=== PATIENT | male | born 1960 | race Caucasian/White ===

== ENCOUNTER 2020-03-01 06:35 | Day surgery (SDC) | payer BC ==
[~2020-03-01] VITALS: Ht 177.8 cm; Wt 130.9 kg
[~2020-03-01 06:35] MED LIST: CLOBETASOL PROP59 M1 TOP; GLUCOPHAGE500 MG PO; LIPITOR20 MG PO; LISINOPRIL5 MG PO; MOMETASONE FURO15 GM TOP; STELARA90 MG/1 ML SUB-Q
--- NOTE | 2020-03-01 08:36 | NUR ---
03/01/20 0836 Sheets,Clarisse 0818 PT ARRIVED TO PACU ON 3L ON NC, BP INCREASED AND MD AWARE. PT ENCOURAGED TO PASS GAS. 0832 O2 REMOVED. MD AWARE OF BP AND REQUEST PT TO FOLLOW UP WITH PCP. NO NEW ORDERS AT THIS TIME.
--- NOTE | 2020-03-01 15:17 | OR ---
[facility] [address] [place], [place] [address] Signed DATE OF OPERATION: 03/01/2020 SURGEON: Natalia Spring MD PREOPERATIVE DIAGNOSES: 1. History of pseudo polyp of cecum (hyperplasia). 2. Sigmoid diverticulosis. POSTOPERATIVE DIAGNOSIS: Definite polyp of cecum (excised). PROCEDURE: Total colonoscopy to cecum with cold snare polypectomy x1. INDICATIONS: This 59-year-old white man is a patient of Dr. Albino Snowden. He is here for surveillance colonoscopy. In July 2016, he was found to have two lesions suggestive of polyp. Final pathology showed the cecal lesion to be without clinical pathologic finding. A sigmoid biopsy showed possible hyperplastic polyp. He is symptom free currently. He is admitted at this time to undergo surveillance colonoscopy, understand the risks of bleeding, infection, and perforation. FINDINGS: The prep was adequate. Complete colonoscopy was undertaken to the cecum without question. He did have a sessile polyp of the cecum without question. This was excised with cold morcellation technique. There were diverticular changes of sigmoid and left colon, but no other findings of concern. DESCRIPTION OF PROCEDURE: The patient was brought to the endoscopy suite and placed in lateral decubitus position. Given intravenous sedation to the point of slurred speech and nystagmus with full cardiopulmonary monitoring. Digital rectal examination was normal. An Olympus video colonoscope was passed into the rectum and manipulated throughout the colon, noting diverticular change of the sigmoid. The prep was adequate. Irrigation was required from [id number]. The scope was ultimately advanced to the cecum. Close manipulation of the cecum showed a sessile polyp. Photographs were taken. A cold snare polypectomy was performed of the polyp. Specimen passed for permanent pathology. Scope Electronically Signed By: NATALIA SPRING MD 03/01/20 1517 PATIENT NAME: JENI MORENO OPERATIVE REPORT DATE OF : 62 REPORT #: [id number] PHYSICIAN: NATALIA SPRING MD PCP: ALBINO SNOWDEN MD REPORT IS CONFIDENTIAL AND NOT TO BE RELEASED WITHOUT AUTHORIZATION [facility] [address] [place], [place] [address] Signed was then withdrawn, examination throughout showed no sign of abnormality other than diverticular change of the sigmoid. Retroflexed view was normal. The scope was removed. The patient was taken to the recovery room in good condition. CONCLUDING DIAGNOSES: 1. Polyp of cecum. 2. Diverticulosis. PLAN: Recommend repeat colonoscopy in 3 years or sooner if clinically indicated. Recommend high-fiber diet. He will return to the ongoing care of Dr. Snowden as well. MD ROZ Murillo/TYLERL /[id number] Copies: ~ Electronically Signed By: NATALIA SPRING MD 03/01/20 1517 PATIENT NAME: JENI MORENO OPERATIVE REPORT DATE OF : 62 REPORT #: [id number] PHYSICIAN: NATALIA SPRING MD PCP: ALBINO SNOWDEN MD REPORT IS CONFIDENTIAL AND NOT TO BE RELEASED WITHOUT AUTHORIZATION
--- NOTE | 2020-03-02 11:31 | PATH ---
[facility] [address] [place], [place] [address] Signed SPECIMEN(S): A CECUM POLYP SPECIMEN SOURCE: A. CECUM POLYP CLINICAL HISTORY: Diverticulosis, history adenomatous cecal changes. Post-op: Cecal polyp. Colonoscopy. MICROSCOPIC DESCRIPTION: Histologic sections of all submitted blocks are examined by light microscopy. These findings, together with the gross examination, support the pathologic diagnosis. FINAL PATHOLOGIC DIAGNOSIS: Colon, cecum, polyp, polypectomy: - Fragments of tubular adenoma. - Negative for high-grade dysplasia or malignancy. NAL:cml:C2NR GROSS DESCRIPTION: The specimen, labeled "RC, cecum polyp," is received in formalin and consists of two yee soft tissue fragments that measure 0.1-0.5 cm in greatest dimension. The specimen is entirely submitted in cassette (A1). JS (under the direct supervision of a pathologist) The Gross Description was prepared using a voice recognition system. The report was reviewed for accuracy; however, sound-alike word errors, addition and/or deletions may occur. If there is any question about this report, please contact Client Services. PERFORMING LABORATORY: The technical component was performed by [facility], [address] [place] [id number] (Home Hospice Rn: Marie Pederson MD; CLIA# [id number]). [facility], [address] [address] (CLIA# [id number]). Diagnostician: Em Morelos MD Pathologist Electronically Signed 03/02/2020 PATIENT NAME: JENI MORENO PATHOLOGY DATE OF : 62 REPORT #: [id number] PHYSICIAN: MARLENE PATHOLOGY PCP: DINORAH GAITAN MD REPORT IS CONFIDENTIAL AND NOT TO BE RELEASED WITHOUT AUTHORIZATION [address] [place], [place] [address] Signed Copies: ~ PATIENT NAME: JENI MORENO PATHOLOGY DATE OF : 62 REPORT #: [id number] PHYSICIAN: MARLENE PATHOLOGY PCP: DINORAH GAITAN MD REPORT IS CONFIDENTIAL AND NOT TO BE RELEASED WITHOUT AUTHORIZATION
== END 2020-03-01 09:08 | disposition home or self-care (01) ==
LOC: DS 06:35 → OPS 06:35 → DS 06:45 → OPS 06:45
PROVIDERS: ATTEND Surgery
PROC: 0DBH8ZX Excision of Cecum, Via Natural or Artificial Opening Endoscopic, Diagnostic (ICD-10-PCS; principal; 2020-03-01 06:45)
DX: Z12.11 Encounter for screening for malignant neoplasm of colon (principal); D12.0 Benign neoplasm of cecum; K57.30 Diverticulosis of large intestine without perforation or abscess without bleeding; I10 Essential (primary) hypertension; R73.01 Impaired fasting glucose; E78.00 Pure hypercholesterolemia, unspecified; E66.01 Morbid (severe) obesity due to excess calories; L40.9 Psoriasis, unspecified; G47.30 Sleep apnea, unspecified; Z79.84 Long term (current) use of oral hypoglycemic drugs; Z79.899 Other long term (current) drug therapy; Z86.010 Personal history of colon polyps
CPT/HCPCS: 99153; G0500; J2250; J3010; J7121

== ENCOUNTER 2020-06-21 13:19 | Emergency (ER) | payer BC ==
[~2020-06-21] VITALS: Ht 177.8 cm; Wt 122.5 kg
== END 2020-06-21 16:30 | disposition home or self-care (01) ==
LOC: ED 13:19
DX: K64.4 Residual hemorrhoidal skin tags (principal); I10 Essential (primary) hypertension; E11.9 Type 2 diabetes mellitus without complications; E78.00 Pure hypercholesterolemia, unspecified; Z79.899 Other long term (current) drug therapy; Z79.84 Long term (current) use of oral hypoglycemic drugs
CPT/HCPCS: 99282

== ENCOUNTER 2024-04-03 06:00 | Day surgery (SDC) | payer BC ==
[2024-04-01 09:54] VITALS: BP 119/71
[2024-04-01 10:40] VITALS: BP 119/71
[~2024-04-03] VITALS: Ht 177.8 cm; Wt 121.0 kg
[~2024-04-03 06:00] MED LIST changes: +CICLODAN6.6 ML TOP; +INDAPAMIDE2.5 MG PO; +LACTATED RINGER'S 1,000 ML IV SCH; -LISINOPRIL5 MG PO; +MOUNJARO10 MG/0.5 SUB-Q; +SILDENAFIL20 MG PO; +TALTZ AUTO80 MG/1 ML SQ; +TOPIRAMATE ER25 M1 PO; +TOPIRAMATE50 MG PO; +TRULICITY0.75 MG/0. SQ; +ZESTRIL40 MG PO
[2024-04-03 06:22] VITALS: BP 110/66
[2024-04-03] MEDS ORDERED: CEFAZOLIN SODIUM 3 GM/30 ML SYR IV SCH (07:00)
[2024-04-03] MEDS ORDERED: LIDOCAINE HCL 1% 5 ML SDV INJ ONE (07:00)
[2024-04-03] MEDS ORDERED: IBLOOD GLUCOSE TEST STRIP 1 EA TEST VI PRN ×2 (07:00→08:30)
[2024-04-03] MEDS ORDERED: HEParin SOD (PORCINE) 5,000 UNIT/0.5 ML SYR SUB-Q SCH (07:00)
[2024-04-03 07:02] VITALS: BP 116/77
[2024-04-03] MEDS ORDERED: fentaNYL citrate 100 MCG/2 ML VIAL ONE (07:25)
[2024-04-03] MEDS ORDERED: propofoL 200 MG/20 ML VIAL ONE (07:26)
[2024-04-03] MEDS ORDERED: KETAMINE in NS 50 MG/5 ML SYR ONE (07:26)
[2024-04-03] MEDS ORDERED: LIDOCAINE HCL 2% 5 ML SDV ONE ×2 (07:26→07:29)
[2024-04-03] MEDS ORDERED: KETOROLAC TROMETHAMINE 30 MG/ML VIAL ONE (07:26)
[2024-04-03] MEDS ORDERED: SODIUM CHLORIDE 0.9% 40 ML IV ONE (07:26)
[2024-04-03] MEDS ORDERED: MAGNESIUM SULFATE 1 GM/2 ML VIAL ONE (07:26)
[2024-04-03] MEDS ORDERED: ACETAMINOPHEN 1,000 MG/100 ML VIAL ONE (07:26)
[2024-04-03] MEDS ORDERED: DEXAMETHASONE SOD PHOS 4 MG/ML VIAL ONE (07:26)
[2024-04-03] MEDS ORDERED: dexmedeTOMIDine HCl 200 MCG/2 ML VIAL ONE (07:26)
[2024-04-03] MEDS ORDERED: ondansetron HCL 4 MG/2 ML VIAL ONE (07:26)
[2024-04-03] MEDS ORDERED: ePHEDrine sulfate 50 MG/ML AMP ONE (08:16)
[2024-04-03] MEDS ORDERED: GLYCOPYRROLATE 1 MG/5 ML MDV ONE (08:22)
[2024-04-03] MEDS ORDERED: ondansetron HCL 4 MG/2 ML VIAL IV PRN (08:30)
[2024-04-03] MEDS ORDERED: fentaNYL citrate 50 MCG/ML SDV IV PRN (08:30)
[2024-04-03] MEDS ORDERED: NALOXONE HCL 0.4 MG SYR IV PRN ×2 (08:30→09:00)
[2024-04-03] MEDS ORDERED: OXYCODON-ACETA1 EAC2 PO (08:50)
[2024-04-03] MEDS ORDERED: ACETAMINOPHEN500 MG PO (08:50)
[2024-04-03] MEDS ORDERED: IBUPROFEN600 MG PO (08:50)
[2024-04-03] MEDS ORDERED: LACTATED RINGER'S 1,000 ML IV SCH (09:00)
[2024-04-03] MEDS ORDERED: IBUPROFEN 600 MG TAB PO PRN (09:00)
[2024-04-03] MEDS ORDERED: OXYCODONE/APAP 7.5/325 TAB PO PRN (09:00)
[2024-04-03] MEDS ORDERED: ACETAMINOPHEN 500 MG TAB PO PRN (09:00)
--- NOTE | 2024-04-03 09:04 | NUR ---
04/03/24 0904 Janel Ramos 0834- PT ARRIVES TO THE PACU WITH A NATURAL AIRWAY AND ON 6L OF O2 VIA MASK. BREATHING IS EVEN AND UNLABORED. PT SHOWS SOME FACIAL GRIMACING. WHEN ASKED ABOUT PAIN AND NAUSEA THE PT SHAKES HIS HEAD NO. ALL MONITORS PUT IN PLACE. LR INFUSING IN THE RIGHT HAND. PT IN SEMI FOWLERS POSITION. ABDOMINAL SURGICAL SITE IS CLEAN, DRY AND INTACT ON INSPECTION. 0842- O2 MASK REMOVED. PT SATS ARE BETWEEN LOW 90S TO HIGH 80S. PT ENCOURAGED TO COUGH AND DEEP BREATHE OFF AND ON. PT SATS WILL INCREASE TO MID 90S. PT EASILY FALLS BACK TO SLEEP AND O2 SATS DECREASE TO THE HIGH 80S. 0848- PT GIVEN AND PILLOW TO HELP WITH SPLINTING. PT CONTINUES TO DENY PAIN AND NAUSEA. 0850- PLAN OF CARE DISCUSSED AND ABDOMINAL BINDER PUT IN PLACE PER MD. 0855- MD AT BEDSIDE TALKING WITH PT. NO QUESTIONS OR CONCERNS. 0901- WHILE PT IS RESTING PT SATS CONTINUE TO DECREASE TO 89%. PT PUT ON 1L OF O2 VIA NC. O2 SATS INCREASE TO 94%. PT RESTING WITH EYES CLOSED.
[2024-04-03 09:18] VITALS: BP 129/68
--- NOTE | 2024-04-03 09:21 | NUR ---
0915 PT ARRIVED TO DAY SURGERY VIA STREACHER. PT DROWSEY BUT ORIENTED. PT REPORTS NO PAIN OR NAUSEA AT THIS TIME. PT SITTING IN SEMI FOWLERS, BREATHING EQUAL AND UNLABORED. PT ON 1L OF O2 VIA NC FOR COMFORT DUE TO PT SLEEP APNEA. PT BED LOW AND LOCKED. CALL LIGHT WITHIN REACH. WATER AND SNACKS AT BEDSIDE.
[2024-04-03 10:08] VITALS: BP 135/72
--- NOTE | 2024-04-03 10:11 | NUR ---
0907-INTO PTS ROOM FOR DISCHAARGE TEACHING AND ROUTINE REASSESSMENT. PT SATS 94-95% OON 1L/NC. TITRATED TO RA. SATS REMAIN 93% OR GREATER ON RA. DISCHARGE EDUCATION REVIEWED WITH PT. PT PROVIDED F/U APPT FOR 05/08/[address] SPRING. DISCUSSED WOUND CARE ORDERS, USE OF ABD BINDER, LIFTING RESTRICTIONS, AND POST-OP PAIN MEDICATIONS. ALL QUESTIONS ANSWERED. 1008-VS TAKEN. IV SITE ASSESSED. PT ENCOURAGED TO TAKE SIPS OF WATER AND ATTEMPT TO EAT PUDDING. PT COMPLIES WITH REQUEST. PT DENIES BOTH NAUSEA AND PAIN WHEN ASKED. SURGICAL DRSG VISUALIZED AND APPEARS CDI. PT WITH ABD BINDER IN PLACE. PT DENIES URGE TO VOID WHEN ASKED. BED IN LOW POSITION, WHEELS LOCKED, BILAT RAILS IN PLACE, AND CALL LIGHT WITHIN PT REACH. PT APPEARS AAOX3, ABLE TO MAKE HIS NEEDS KNOWN, AND ANSWERS QUESTIONS APPROPRIATELY.
--- NOTE | 2024-04-03 11:06 | NUR ---
LE 1105: PT IS ASSISTED UP OOB WITH STANDBY ASSIST. HE AMBULATES HIMSELF TO THE BATHROOM. HE IS ABLE TO VOID 275MLS. LE 1106: HE INDICATES THAT HE WOULD LIKE TO GO HOME AT THIS TIME. HE IS EDUCATED ON HOW TO BEST DRESS HIMSELF AND TO OPEN HIS CURTAIN WHEN READY. IS CALLED TO COME PICK HIM UP. SHE WILL BE HERE IN ABOUT 40 MINUTES - SHE IS COMING FROM [place].
[2024-04-03 11:19] VITALS: BP 129/67
--- NOTE | 2024-04-03 11:25 | NUR ---
1115-INTO PTS ROOM FOR ROUTINE REASSESSMENT. VS TAKEN. PT REPORTS PAIN AT 3/10 IN SURIGCAL SITE. PT REPORTS THIS TO BE TOLERABLE AND DECLINES INTERVENTION AT THIS TIME. PT DENIES NAUSEA WHEN ASKED. PT COMPLIANT WITH USE OF ABD BINDER. SURGICAL SITE OBSERVED AND SMALL AMT OF SHADOWING NOTED ON BOTTOM OF DRSG. DRSG REMAINS INTACT. PT IS DRESSED AND HAS EATEN AND TAKEN PO FLUIDS WITHOUT ISSUES. PT VOIDED AND HAS MET CRITERIA FOR DC. HAS BEEN CALLED AND WILL ARIVE AT FRONT OF HOSPITAL AT APPROX 1200. 1125-IV REMOVED. TIP OBSERVED TO BE INTACT. PRESSURE DRSG APPLIED WITH GAUZE AND COBAN. PT DECLINES TO PUT SHOES ON AT THIS TIME. ALL QUESTIONS ANSWERED. BED IN LOW POSITION, WHEELS LOCKED, CALL LIGHT WITHIN PT REACH.
--- NOTE | 2024-04-03 12:00 | NUR ---
PT DISCHARGED HOME VIA WC TO PASSENGER SIDE OF WIFES VEHICLE. ALL PERSONAL BELONGINGS TAKEN WITH PT.
[2024-04-03] MEDS ORDERED: SEVOFLURANE 250 ML BTL INH ONE (15:10)
--- NOTE | 2024-04-03 19:35 | EKG ---
[facility] [address] [facility] [place], [place] [address] Signed Normal sinus rhythm T wave abnormality, consider lateral ischemia Abnormal ECG No previous ECGs available Confirmed by Jessica Byers MD ([id number]) on 04/03/2024 7:35:14 PM Electronically Signed By: JESSICA BYERS MD 04/03/241934 PATIENT NAME: JENI MORENO Electrocardiogram DATE OF : 62 PHYSICIAN: JESSICA BYERS MD REPORT #: [id number] REPORT IS CONFIDENTIAL AND NOT TO BE RELEASED WITHOUT AUTHORIZATION
--- NOTE | 2024-04-04 13:30 | OR ---
[facility] [address] [place], [place] [address] Signed DATE OF OPERATION: 04/03/2024 SURGEON: Natalia Spring MD PREOPERATIVE DIAGNOSES: 1. Incarcerated umbilical hernia. 2. Obesity. POSTOPERATIVE DIAGNOSES: 1. Incarcerated umbilical hernia. 2. Obesity. 3. Defect less than 4 cm. PROCEDURES: 1. Repair of incarcerated umbilical hernia. 2. Implantation of Prolene mesh underlay technique. ANESTHESIA: General LMA, Jaylen Barry, SAMPLE EXAMINER and local 10 mL of 0.25% Marcaine with epinephrine. INDICATION: This 63-year-old white man is a patient of Dr. Albino Snowden. He was identified as having a nonreducible umbilical hernia. The patient was evaluated a few months ago and due to morbid obesity, a plan of prehabilitation with weight loss has been undertaken. The patient is now on Mounjaro and is losing weight and has decreased his weight to the point that repair of hernia is more feasible to decrease postoperative complications as well as long-term success of the repair. The umbilical hernia that is present is not reducible, though it is not likely to incorporate hollow viscus as he has no nausea or vomiting. He understands the risk of hernia repair included but not limited to bleeding, infection, and recurrence and wished to proceed. FINDINGS: The defect was between 2 and 4 cm in size overall. The incarcerated viscus was properitoneal fat. It was reduced in the properitoneal space and the hernia sac excised. Implantation of ProGrip Prolene mesh was undertaken in an underlay technique in the properitoneal space with additional transverse closure of the fascia itself. He tolerated the procedure well. PROCEDURE IN DETAIL: The patient was brought to the operating room, given a general LMA type anesthetic. Electronically Signed By: NATALIA SPRING MD 04/04/24 1330 PATIENT NAME: JENI MORENO OPERATIVE REPORT DATE OF : 62 REPORT #: [id number] PHYSICIAN: NATALIA SPRING MD PCP: ALBINO SNOWDEN MD REPORT IS CONFIDENTIAL AND NOT TO BE RELEASED WITHOUT AUTHORIZATION [facility] [address] [place], [place] [address] Signed Preoperative antibiotic Ancef was given. Sequential compression device stockings used and heparin subcutaneously administered. After satisfactory anesthesia, the abdomen was clipped and prepared with a chlorhexidine based solution. An incision was made to the left of the umbilicus in a vertical configuration. Dissection carried through the subcutaneous tissue with blunt electrocautery dissection. Herniated properitoneal fat was noted. This was from the overlying umbilical dermis and isolated fully from the surrounding soft tissue. The fascial defect was greater than 2 cm but less than 4 cm. The hernia sac was incised and stripped from the properitoneal fat and the properitoneal fat returned to the properitoneal space. Using blunt dissection, circumferential mobilization of the properitoneal space was undertaken. A segment of ProGrip mesh was folded over and cut to a circular configuration and secured in an underlay technique with interrupted 0 Prolene suture with some Prolene pledgets. The fascia was then transversely reapproximated with interrupted Prolene in a horizontal mattress configuration securing the fascia completely. 10 mL of 0.25% Marcaine with epinephrine was injected locally. The skin was closed with running subcuticular 3-0 Vicryl after reapproximation of the subcutaneous space with 2-0 Vicryl suture. Steri-Strips were applied as was Acticoat dressing. The patient was ultimately extubated and transferred to the recovery room in good condition having suffered no complications. Sponge, needle, and instrument counts were reported as correct x3. Natalia Spring MD /TYLERL /[id number] cc: Albino Snowden MD Copies: ALBINO SNOWDEN MD ~ Electronically Signed By: NATALIA SPRING MD 04/04/24 1330 PATIENT NAME: TIFFANIEJENIEdgard CONTRERAS OPERATIVE REPORT DATE OF : 62 REPORT #: [id number] PHYSICIAN: NATALIA SPRING MD PCP: ALBINO SNOWDEN MD REPORT IS CONFIDENTIAL AND NOT TO BE RELEASED WITHOUT AUTHORIZATION
--- NOTE | 2024-04-07 10:44 | PATH ---
[facility] [address] [facility] [place], [place] [address] Signed SPECIMEN(S): A UMBILICAL HERNIA SAC SPECIMEN SOURCE: A. UMBILICAL HERNIA SAC CLINICAL HISTORY: Umbilical hernia. FINAL PATHOLOGIC DIAGNOSIS: Hernia sac, umbilical, herniorrhaphy: - Fibroconnective tissue with no significant pathologic changes, clinically hernia sac BRP MICROSCOPIC EXAMINATION: Histologic sections of all submitted blocks are examined by light microscopy. These findings, together with the gross examination, support the pathologic diagnosis. GROSS DESCRIPTION: The specimen, labeled and designated "Paul, R, " and designated on the requisition "umbilical hernia sac," is received in formalin and consists of 1.5 x 1.4 x 0.9 cm pink to violaceous shaggy membranous tissue fragment. The specimen is sectioned and entirely submitted in cassette A1. FB (under the direct supervision of a pathologist) The Gross Description was prepared using a voice recognition system. The report was reviewed for accuracy; however, sound-alike word errors, addition and/or deletions may occur. If there is any question about this report, please contact Client Services. ADDITIONAL NOTES: Immunohistochemical and/or in situ hybridization studies if performed in this case included appropriate positive controls that reacted as expected. This test was developed and its performance characteristics determined by [employer]. It has not been cleared or approved by the U.S. Food and Drug Administration. The FDA has determined that such clearance or approval is not necessary. This test is used for clinical purposes. It should not be regarded as investigational or for research. [employer] is certified under the Clinical Laboratory Improvement PATIENT NAME: JENI MORENO PATHOLOGY DATE OF : 62 REPORT #: [id number] PHYSICIAN: MARLENE BARTHOLOMEW PCP: DINORAH GAITAN MD REPORT IS CONFIDENTIAL AND NOT TO BE RELEASED WITHOUT AUTHORIZATION [address] [place] [address] Signed Amendments of 1988 (CLIA) as qualified to perform high complexity clinical laboratory testing. PERFORMING LABORATORY: Technical component was performed by [employer], [address] [place] [address] (CLIA# [id number]). Professional interpretation was performed by [facility], [address] [place] [address] (CLIA#: [id number]). Diagnostician: Andrade Arevalo MD Pathologist Electronically Signed 04/07/2024 Copies: ~ PATIENT NAME: JENI MORENO PATHOLOGY DATE OF : 62 REPORT #: [id number] PHYSICIAN: MARLENE BARTHOLOMEW PCP: DINORAH GAITAN MD REPORT IS CONFIDENTIAL AND NOT TO BE RELEASED WITHOUT AUTHORIZATION
== END 2024-04-03 12:00 | disposition home or self-care (01) ==
LOC: DS 06:00
PROVIDERS: ATTEND Surgery
PROC: 0WUF0JZ Supplement Abdominal Wall with Synthetic Substitute, Open Approach (ICD-10-PCS; principal; 2024-04-03 07:30)
DX: K42.0 Umbilical hernia with obstruction, without gangrene (principal); E66.01 Morbid (severe) obesity due to excess calories; I10 Essential (primary) hypertension; E11.9 Type 2 diabetes mellitus without complications; E78.00 Pure hypercholesterolemia, unspecified; Z79.85 Long-term (current) use of injectable non-insulin antidiabetic drugs; Z68.38 Body mass index [BMI] 38.0-38.9, adult; Z79.899 Other long term (current) drug therapy; Z79.84 Long term (current) use of oral hypoglycemic drugs; Z87.891 Personal history of nicotine dependence
CPT/HCPCS: 00750; 93005; 93010; C1781; J0131; J0690; J1100; J1644; J1885; J2003; J2405; J2704; J3010; J3475; J3490; J7121